=== PATIENT | male | born 1950 | race Caucasian/White ===

== ENCOUNTER 2023-12-11 05:17 | Inpatient (IN) ==
[2023-12-11 06:00] LABS: Basophils # (auto) 0.06 K/uL (0.00-0.20); Eosinophils % (auto) 3.2 %; Hematocrit (blood only) 49.4 % (42.0-52.0); Hemoglobin 16.4 g/dl (14.0-18.0); Immature Granulocytes # (auto) 0.01 K/uL (0.01-0.20); Immature Granulocytes % (auto) 0.2 %; Lymphocytes # (auto) 0.66 K/uL (1.20-3.40); Lymphocytes % (auto) 10.6 %; Mean Corpuscular Hemoglobin 28.9 pg (25.0-34.0); Mean Corpuscular Hgb Conc 33.2 g/dL (32.0-36.0); Mean Platelet Volume 8.6 fL (9.4-12.4); Monocytes # (auto) 0.87 K/uL (0.11-0.59); Neutrophils # (auto) 4.42 K/uL (1.40-6.50); Platelet Count 214 K/uL (130-400); RDW Coefficient of Variation 14.2 % (11.5-14.5); RDW Standard Deviation 45.5 fL (36.4-46.3); Red Blood Count 5.68 M/uL (4.70-6.10); White Blood Count 6.22 K/ul (4.8-10.8)
[2023-12-11 06:06] LABS: Albumin Level 4.2 gm/dl (3.4-5.0); BUN Creatinine Ratio 16.7 (10-20); Bilirubin Direct 0.1 mg/dl (0-0.2); Bilirubin,Total 0.4 mg/dl (0.2-1.0); Calcium 8.8 mg/dl (8.6-10.3); Creatinine Clr Calc Pharmacy 55.1 ml/min; Est GFR (African American) 58.8 ml/min; Est GFR (Non-African American) 50.7 ml/min; Magnesium 1.7 mg/dl (1.7-2.4); Potassium 3.8 mmol/L (3.5-5.1); Total Protein 6.9 gm/dl (6.0-8.3)
[2023-12-11 06:11] LABS: Troponin I High Sensitivity 5.9 pg/ml (0-20)
[2023-12-11 06:24] LABS: Influenza A virus by PCR Negative (Neg); Influenza B virus by PCR Negative (Neg); RSV by PCR Positive (Neg); SARS CoV2 RNA(COVID-19) Ceph NEGATIVE (Negative)
[2023-12-11] MEDS: ALBUTEROL 0.5% NEB SOLN 2.5 MG/0.5 ML VIAL NEB STA ×2 (07:01→09:24)
[2023-12-11] MEDS: methylPREDNISolone 125 MG/2 ML VIAL IV STA (07:01)
--- NOTE | 2023-12-11 07:22 | Emergency Department Note ---
Impression & Plan RSV (acute bronchiolitis due to respiratory syncytial virus), Acute on chronic hypoxic respiratory failure, Hypoxia, COPD (chronic obstructive pulmonary disease) ED Provider Note NAME: CAT ADAMES AGE: 73 SEX: M : 1950 ARRIVES VIA: Ambulance INFORMANT: Patient, ED PROVIDER(S): Deidra Dang MD CHIEF COMPLAINT: Cough, shortness of breath HPI: This is a 73-year-old male presenting for cough and increased shortness of breath. Patient states that he is a smoker. He notes that over the past 4 days he has had increasing cough, productive sputum, change in color of the sputum. He notes that he had difficulty breathing this morning and had to call 911. Patient was hypoxic upon EMS arrival requiring oxygen and nebulizers. Reportedly was 92% on room air at home. He has noted no fever that he is aware of but does feel overall sick. No nausea or vomiting. ROS: See above HPI for pertinent positives & negatives. A total of 10 systems reviewed and were otherwise negative. PAST MEDICAL HISTORY: See Below PAST SURGICAL HISTORY: See Below FAMILY HISTORY: See Below SOCIAL HISTORY: See Below HOME MEDICATIONS: See Below ALLERGIES: See Below VITALS: See Below PHYSICAL EXAMINATION: General: resting comfortably in no acute distress Head: Normocephalic and atraumatic Eyes: Normal inspection, extraocular muscles intact Ear, nose, throat: Normal external exam Neck: Normal range of motion Respiratory: Wheezing in all lung field Cardiovascular: Regular rate/rhythm, no murmur GI: soft, nontender, no guarding or rebound Extremities: nontender, moves all extremities Neuro: The patient awake and alert, appropriately conversive, no focal deficits, symmetric faces Skin: Warm, dry, and intact MEDICAL DECISION MAKING: This is 73-year-old male presenting for cough and increased shortness of breath. Patient had a screening workup done at triage including viral testing, chest x- ray and blood work. -No leukocytosis is noted, no anemia. Patient electrolytes are within normal limits. -BNP and troponin are both negative -Patient is RSV positive at this time. He is borderline hypoxic between 89 and 91% on room air despite albuterol treatments by EMS. -Will give patient methylprednisolone as well as repeat neb to assess for improvement. He is wheezing in all lung [place] -Chest Xray independently interpreted by me showing no pneumothorax, focal opacity, or pleural effusions. -Despite multiple albuterol treatments and steroids, patient continues to wheeze and is mildly hypoxic. Will admit for further workup and treatment for his RSV/COPD exacerbation -Blood work is reviewed without leukocytosis or anemia, electrolytes within normal limits. Differential diagnosis: Pneumonia, PE, ACS, sleep exacerbation, viral syndrome ER treatment provided: See below Diagnostics interpreted by me: ECG: ECG independently interpreted by me with sinus tachycardia, rate of 111, normal axis, normal CA, normal QRS, normal QTc, no ST segment elevations consistent with STEMI criteria Cardiac Monitoring: An order was placed for continuous cardiac monitoring. The monitor shows a rate of 106 with sinus rhythm. Laboratory studies: As stated above and show below. Imaging studies: See below. Past Med/Surg History Medical History Hypoxia [place] (nonalcoholic steatohepatitis) BPH (benign prostatic hyperplasia) COPD (chronic obstructive pulmonary disease) HTN (hypertension) DM2 (diabetes mellitus, type 2) Acute on chronic hypoxic respiratory failure RSV (acute bronchiolitis due to respiratory syncytial virus) Bronchitis Social History Smoking Status: Current every day smoker Tobacco Type: Cigarettes Do You Dip or Chew Tobacco: No; Tobacco Cessation Education Requested by Patient: No Hx Alcohol Use: No Hx Substance Use: No Feels Safe at Home: Yes Allergies Allergies Allergy/AdvReac Type Severity Reaction Status Date / Time diclofenac Allergy Unknown Verified 12/11/23 11:11 amoxicillin AdvReac Unknown Verified 12/11/23 11:11 clavulanic acid AdvReac Unknown Verified 12/11/23 11:11 Home Meds Home Medications Medication Instructions Recorded Confirmed empagliflozin 25 mg tablet 25 mg PO QAM 12/11/23 12/11/23 (Jardiance) fenofibrate 54 mg tablet 108 mg PO QAM 12/11/23 12/11/23 glipizide 5 mg tablet, extended 5 mg PO QAM 12/11/23 12/11/23 release 24 hr hydrochlorothiazide 12.5 mg capsule 12.5 mg PO QAM 12/11/23 12/11/23 lisinopril 40 mg tablet 40 mg PO QAM 12/11/23 12/11/23 metformin 500 mg tablet 1,000 mg PO BID 12/11/23 12/11/23 simvastatin 40 mg tablet 40 mg PO HS 12/11/23 12/11/23 Results & Data (ED) Vital Signs Vital Signs - 24 hr 12/11/23 05:24 12/11/23 05:35 12/11/23 05:36 Temperature 36.9 C Temperature Source Oral Pulse Rate 107 H 115 H Pulse Rate [Apical] 110 H Respiratory Rate 22 23 Respiratory Effort / Characteristics Spontaneous Spontaneous Respiratory Depth Blood Pressure 167/91 H Blood Pressure [Right Arm] 167/91 H Blood Pressure Mean 116 Blood Pressure Mean [Right Arm] 116 Pulse Oximetry 97 92 Oxygen Delivery Method Nebulizer Nasal Cannula Oxygen Flow Rate 4 Sepsis Recent Fever Within 48 Hours No Sepsis New/Unexplained Change in Mental Status No Sepsis Action Taken by Nursing No Action Required 12/11/23 06:24 12/11/23 07:09 12/11/23 07:10 Temperature Temperature Source Pulse Rate 101 H Pulse Rate [Apical] 99 H 100 H Respiratory Rate 23 24 24 Respiratory Effort / Characteristics Spontaneous Respiratory Depth Normal Blood Pressure Blood Pressure [Right Arm] 131/68 128/71 Blood Pressure Mean Blood Pressure Mean [Right Arm] 89 90 Pulse Oximetry 93 96 96 Oxygen Delivery Method Nasal Cannula Nebulizer Nebulizer Oxygen Flow Rate 4 Sepsis Recent Fever Within 48 Hours Sepsis New/Unexplained Change in Mental Status Sepsis Action Taken by Nursing 12/11/23 08:15 12/11/23 09:00 12/11/23 09:30 Temperature Temperature Source Pulse Rate Pulse Rate [Apical] 100 H 102 H 92 H Respiratory Rate 20 22 22 Respiratory Effort / Characteristics Non-Labored Spontaneous Non-Labored Spontaneous Respiratory Depth Normal Normal Blood Pressure Blood Pressure [Right Arm] 131/76 141/69 H 133/72 Blood Pressure Mean Blood Pressure Mean [Right Arm] 94 93 92 Pulse Oximetry 92 93 94 Oxygen Delivery Method Nasal Cannula Nasal Cannula Nasal Cannula Oxygen Flow Rate 2 2 2 Sepsis Recent Fever Within 48 Hours Sepsis New/Unexplained Change in Mental Status Sepsis Action Taken by Nursing Laboratory Data 12/11/23 05:25 12/11/23 05:25 Lab Results 12/11/23 12/11/23 12/11/23 Range/Units 05:25 05:30 05:51 WBC 6.22 (4.8-10.8) K/ul RBC 5.68 (4.70-6.10) M/uL Hgb 16.4 (14.0-18.0) g/dl Hct 49.4 (42.0-52.0) % MCV 87.0 (80.0-100.0) fL MCH 28.9 (25.0-34.0) pg MCHC 33.2 (32.0-36.0) g/dL RDW Std Deviation 45.5 (36.4-46.3) fL RDW Coeff of [place] 14.2 (11.5-14.5) % Plt Count 214 (130-400) K/uL MPV 8.6 L (9.4-12.4) fL Immature Gran % (Auto) 0.2 % Neut % (Auto) 71.0 % Lymph % (Auto) 10.6 % [place] % (Auto) 14.0 % Eos % (Auto) 3.2 % Baso % (Auto) 1.0 % Neut # (Auto) 4.42 (1.40-6.50) K/uL Lymph # (Auto) 0.66 L (1.20-3.40) K/uL [place] # (Auto) 0.87 H (0.11-0.59) K/uL Eos # (Auto) 0.20 (0.00-0.50) K/uL Baso # (Auto) 0.06 (0.00-0.20) K/uL Immature Gran # (Auto) 0.01 (0.01-0.20) K/uL Sodium 138 (136-145) mmol/L Potassium 3.8 (3.5-5.1) mmol/L Chloride 102 (98-107) mmol/L Carbon Dioxide 26 (21-32) mmol/L Anion Gap 10 (3-11) BUN 23 (6-23) mg/dl Creatinine 1.38 (0.6-1.4) mg/dl Est Cr Clr Drug Dosing 55.1 ml/min Est GFR ( Amer) 58.8 ml/min Est GFR (Non-Af Amer) 50.7 ml/min BUN/Creatinine Ratio 16.7 (10-20) Glucose 156 H (70-99(Fasting)) mg/dl Lactate 1.9 (0.4-2.0) mmol/L Calcium 8.8 (8.6-10.3) mg/dl Magnesium 1.7 (1.7-2.4) mg/dl Total Bilirubin 0.4 (0.2-1.0) mg/dl Direct Bilirubin 0.1 (0-0.2) mg/dl AST 20 (13-39) U/L ALT 16 (7-52) U/L Alkaline Phosphatase 42 (34-104) U/L Troponin I High Sens 5.9 (0-20) pg/ml B-Natriuretic Peptide 7 (0-100) pg/ml Total Protein 6.9 (6.0-8.3) gm/dl Albumin 4.2 (3.4-5.0) gm/dl Procalcitonin 0.17 (0-0.5) ng/ml Urine Color Urine Appearance (Clear) Urine pH (4.5-7.5) Ur Specific [place] (1.000-1.030) Urine Protein (Negative) Urine Glucose (UA) (Negative) Urine Ketones (Negative) Urine Blood (Negative) Urine Nitrite (Negative) Urine Bilirubin (Negative) Urine Urobilinogen (Negative) Ur Leukocyte Esterase (Negative) SARS-CoV-2 (PCR) NEGATIVE (Negative) Influenza Type A (PCR) Negative (Neg) Influenza Type B (PCR) Negative (Neg) RSV (RT-PCR) Positive A (Neg) 12/11/23 Range/Units 07:25 WBC (4.8-10.8) K/ul RBC (4.70-6.10) M/uL Hgb (14.0-18.0) g/dl Hct (42.0-52.0) % MCV (80.0-100.0) fL MCH (25.0-34.0) pg MCHC (32.0-36.0) g/dL RDW Std Deviation (36.4-46.3) fL RDW Coeff of [place] (11.5-14.5) % Plt Count (130-400) K/uL MPV (9.4-12.4) fL Immature Gran % (Auto) % Neut % (Auto) % Lymph % (Auto) % [place] % (Auto) % Eos % (Auto) % Baso % (Auto) % Neut # (Auto) (1.40-6.50) K/uL Lymph # (Auto) (1.20-3.40) K/uL [place] # (Auto) (0.11-0.59) K/uL Eos # (Auto) (0.00-0.50) K/uL Baso # (Auto) (0.00-0.20) K/uL Immature Gran # (Auto) (0.01-0.20) K/uL Sodium (136-145) mmol/L Potassium (3.5-5.1) mmol/L Chloride (98-107) mmol/L Carbon Dioxide (21-32) mmol/L Anion Gap (3-11) BUN (6-23) mg/dl Creatinine (0.6-1.4) mg/dl Est Cr Clr Drug Dosing ml/min Est GFR ( Amer) ml/min Est GFR (Non-Af Amer) ml/min BUN/Creatinine Ratio (10-20) Glucose (70-99(Fasting)) mg/dl Lactate (0.4-2.0) mmol/L Calcium (8.6-10.3) mg/dl Magnesium (1.7-2.4) mg/dl Total Bilirubin (0.2-1.0) mg/dl Direct Bilirubin (0-0.2) mg/dl AST (13-39) U/L ALT (7-52) U/L Alkaline Phosphatase (34-104) U/L Troponin I High Sens (0-20) pg/ml B-Natriuretic Peptide (0-100) pg/ml Total Protein (6.0-8.3) gm/dl Albumin (3.4-5.0) gm/dl Procalcitonin (0-0.5) ng/ml Urine Color Yellow Urine Appearance Clear (Clear) Urine pH 5.5 (4.5-7.5) Ur Specific [place] 1.031 H (1.000-1.030) Urine Protein Negative (Negative) Urine Glucose (UA) 3+ H (Negative) Urine Ketones Negative (Negative) Urine Blood Negative (Negative) Urine Nitrite Negative (Negative) Urine Bilirubin Negative (Negative) Urine Urobilinogen Negative (Negative) Ur Leukocyte Esterase Negative (Negative) SARS-CoV-2 (PCR) (Negative) Influenza Type A (PCR) (Neg) Influenza Type B (PCR) (Neg) RSV (RT-PCR) (Neg) Administered Medications Albuterol (Albut/Ipratrop 3mg/0.5mg Neb 3 Ml Vial) 3 ml NEB QIDR TAI; Protocol Stop: 01/10/24 10:59 Last Admin: 12/11/23 14:17 Dose: Not Given Documented By: Admin: 12/11/23 11:02 Dose: 3 ml Documented By: YARA Doxycycline Hyclate (Doxycycline Hyclate 100 Mg Cap) 100 mg PO BID [facility] Stop: 12/18/23 10:59 Last Admin: 12/11/23 11:23 Dose: 100 mg Documented By: FARHAT Enoxaparin Sodium (Enoxaparin Inj 40 Mg/0.4 Ml Syr) 40 mg SQ QAM [facility] Stop: 01/10/24 10:44 Last Admin: 12/11/23 11:25 Dose: Not Given Documented By: FARHAT Sodium Chloride (Nss) 1,000 mls @ 80 mls/hr IV .[id number] [facility] Stop: 12/12/23 11:29 Last Admin: 12/11/23 11:23 Dose: 80 mls/hr Documented By: FARHAT Insulin Aspart (Insulin Aspart Per Unit Charge) 0 units SC ACHS [facility] Stop: 01/10/24 11:29 Last Admin: 12/11/23 14:17 Dose: 6 units Documented By: FARHAT Co-signed By: KATE Discontinued Medications Albuterol (Albuterol 0.5% Neb Soln 2.5 Mg/0.5 Ml Vial) 2.5 mg NEB NOW STA; Protocol Stop: 12/11/23 06:54 Last Admin: 12/11/23 07:01 Dose: 2.5 mg Documented By: FARHAT Albuterol (Albuterol 0.5% Neb Soln 2.5 Mg/0.5 Ml Vial) 2.5 mg NEB NOW STA; Protocol Stop: 12/11/23 09:19 Last Admin: 12/11/23 09:24 Dose: 2.5 mg Documented By: FARHAT Insulin Glargine (Lantus Per Unit Charge) 10 units SQ 1200 [facility] Stop: 12/11/23 14:00 Last Admin: 12/11/23 14:18 Dose: 10 units Documented By: FARHAT Co-signed By: KATE Methylprednisolone (Methylprednisolone 125 Mg/2 Ml Vial) 125 mg IV NOW STA Stop: 12/11/23 06:54 Last Admin: 12/11/23 07:01 Dose: 125 mg Documented By: FARHAT Miscellaneous Information (Patient's Allergy Info Needs Entered) 1 each N/A Q30M [facility] Stop: 01/10/24 10:59 Last Admin: 12/11/23 13:21 Dose: Not Given Documented By: Admin: 12/11/23 11:13 Dose: 1 each Documented By: FARHAT Imaging Data Radiologist's Impression: Chest X-Ray 12/11/23 05:28 XR chest 1V portable HISTORY: Sepsis COMPARISON: Chest 07/02/2021. FINDINGS: Mild elevation of the right hemidiaphragm, unchanged. No pneumothorax. No pleural effusions. The heart is normal in size. There are calcifications within the aortic knob. No evidence for pulmonary edema. Faint patchy bibasilar densities are noted. IMPRESSION: Faint patchy bibasilar densities. This may represent atelectasis or a low-grade pneumonitis. ACT 112: Negative or not required by law. Electronically signed by: [place] Joseph M.D. 12/11/2023 7:42 AM Discharge Plan Visit Data Chief Complaint: Illness Stated Complaint: GENERALIZED ILLNESS, SOB X FEW DAYS ED Provider: Deidra Dang Discharge Problem: RSV (acute bronchiolitis due to respiratory syncytial virus), Acute on chronic hypoxic respiratory failure, Hypoxia, COPD (chronic obstructive pulmonary disease) Patient Disposition: Admitted As Inpatient Discharge Instructions Interventions: ED Discharge Assessment Last Done: 12/11/23 10:14
[2023-12-11 07:35] LABS: Appearance Urine Clear (Clear); Bilirubin Urine Negative (Negative); Blood Urine Negative (Negative); Color Urine Yellow; Glucose Urine UA 3+ (Negative); Ketones Urine Negative (Negative); Leukocyte Esterase Urine Negative (Negative); Nitrite Urine Negative (Negative); Protein Urine Negative (Negative); Specific Gravity Urine 1.031 (1.000-1.030); Urobilinogen Urine Negative (Negative); pH Urine 5.5 (4.5-7.5)
--- NOTE | 2023-12-11 07:44 | XRay Report ---
XR chest 1V portable HISTORY: Sepsis COMPARISON: Chest 07/02/2021. FINDINGS: Mild elevation of the right hemidiaphragm, unchanged. No pneumothorax. No pleural effusions . The heart is normal in size. There are calcifications within the aortic knob. No evidence for pulmo nary edema. Faint patchy bibasilar densities are noted. IMPRESSION: Faint patchy bibasilar densities. This may represent atelectasis or a low-grade pneumonitis. ACT 112: Negative or not required by law. Electronically signed by: [place] Joseph M.D. 12/11/2023 7:42 AM
[2023-12-11] MEDS ORDERED: ACETAMINOPHEN 325 MG TAB PO PRN (09:40)
[2023-12-11] MEDS ORDERED: MAGNESIUM HYDROXIDE SUSP 30 ML UDC PO PRN (09:40)
[2023-12-11] MEDS ORDERED: ONDANSETRON INJ 2 MG/ML 2 ML VIAL IV PRN (09:40)
[2023-12-11] MEDS ORDERED: POLYETHYLENE (MIRALAX) 17 GM PACK PO PRN (09:40)
[2023-12-11] MEDS ORDERED: ALUMINUM/MAGNESIUM SUSP 30 ML UDC PO PRN (09:40)
--- NOTE | 2023-12-11 09:48 | History & Physical Report ---
Date of Service December 11, 2023 Assessment & Plan (1) RSV (acute bronchiolitis due to respiratory syncytial virus): (2) Hypoxia: (3) DM2 (diabetes mellitus, type 2): (4) HTN (hypertension): (5) COPD (chronic obstructive pulmonary disease): (6) BPH (benign prostatic hyperplasia): Plan Mr. Matos is a 73-year-old M who presented to ED with wheezing and increased white and yellow sputum production over the past few days. Reports fever and chills, but no recorded temperature. Reports being otherwise well prior to 3 days ago. Decreased appetite and oral intake over the past 3 days. No known sick contacts and no recent air travel. In the ED, patient was placed on 4 L nasal cannula and given an albuterol treatment with mild improvement along with IV steroids. No leukocytosis, mild NATALIO; creatinine 1.38; baseline 1-1.2. Serum glucose 156. BNP negative, troponin negative, procalcitonin negative,+ RSV. Otherwise labs unremarkable. CXR: Faint patchy bibasilar densities. This may represent atelectasis or a low-grade pneumonitis. Past medical history includes NIDDM, HTN, BPH, and RAY. Daily smoker; < 1/2 PPD. Suspect patient experiencing hypoxia secondary to RSV infection. Will support with continued low-dose steroids, nebulizers, IV fluids, cover empirically with doxycycline for possible pneumonitis as evidenced on chest x-ray, flutter valve, incentive spirometry, cough expectorant for symptom management. Noted COPD and outpatient records; only on as needed albuterol. Would benefit likely from inhalers upon discharge and follow-up with pulmonary to establish care. Hypoxia secondary to RSV: Acute No leukocytosis, procalcitonin negative, BNP negative Sputum culture ordered Chest x-ray indicates Faint patchy bibasilar densities. This may represent atelectasis or a low-grade pneumonitis; will empirically cover with Doxy and await sputum culture results RSV +; place on droplet precautions Albuterol treatment x 2 in ED; continue 4 times daily plus every 2 as needed Methylprednisone 125 mg IV given in ED; continue low-dose steroids 20 mg twice daily Flutter valve and incentive spirometry ordered Mucinex for cough expectorant and Tessalon Pearls PRN NIDDM 2: Chronic Most recent A1c 06/18 7.1; will obtain while inpatient Takes metformin and glipizide; hold while inpatient and placed on SSI ACHS NATALIO: Acute Suspect related to current illness/dehydration; will place on gentle fluid rehydration and recheck BMP @ 2100 Creatinine 1.38; baseline 1-1.2 HTN: Chronic Takes lisinopril and HCTZ; continue Trend BMP to ensure creatinine trending in the right direction back to baseline Tobacco use: Chronic Smokes less than half a pack per day; no interest in cessation Declines nicotine patch Smoking cessation recommended Disposition: PCP: Inocencia Kelly PA-C CODE STATUS: Full code VTE prophylaxis: Lovenox SQ I spent a total of 87 minutes coordinating, documenting, and providing care for this patient excluding time spent in the performance of separately billed services. All of the aforementioned completed while collaborating with the assigned attending physician for a full treatment plan. Please see their addendum for further details. History of Present Illness Chief Complaint: SOB, RSV + Primary Care Provider: Inocencia Kelly DO Mr. Matos is a 73-year-old male who presented to the ED with wheezing and increased white and yellow sputum production over the past few days. He has had pneumonia and bronchitis a few years ago. Reports fever and chills, but no recorded temperature. Reports being otherwise well prior to 3 days ago. Decreased appetite and oral intake over the past 3 days. No known sick contacts and no recent air travel. In the ED, patient was placed on 4 L nasal cannula and given an albuterol federico tment with mild improvement along with IV steroids. Past medical history includes NIDDM, HTN, BPH, and RAY. Has albuterol as needed. No leukocytosis, mild NATALIO; creatinine 1.38; baseline 1-1.2. Serum glucose 156. BNP negative, troponin negative, procalcitonin negative,+ RSV. Otherwise labs unremarkable. Chest x-ray indicates faint patchy bibasilar densities. This may represent atelectasis or a low-grade pneumonitis. Pt denies CARRERO, dizziness, chest pain, palpitations, abdominal pain or tenderness, nausea, vomiting, urine or bowel changes, recent falls or trauma. Patient reports smoking daily less than half pack per day; no alcohol or recreational drug use including medical marijuana. Suspect patient experiencing hypoxia secondary to RSV infection. Will support with continued low-dose steroids, nebulizers 4 times daily plus as needed, IV fluids, cover empirically with doxycycline for possible pneumonitis as evidenced on chest x-ray, flutter valve, incentive spirometry, cough expectorant for symptom management. Patient will be admitted for further evaluation and management. Please see A/P for further details. Allergies Allergy/AdvReac Type Severity Reaction Status Date / Time diclofenac Allergy Unknown Verified 12/11/23 11:11 amoxicillin AdvReac Unknown Verified 12/11/23 11:11 clavulanic acid AdvReac Unknown Verified 12/11/23 11:11 Home Medications Medication Instructions Recorded Confirmed Type empagliflozin 25 mg tablet 25 mg PO QAM 12/11/23 12/11/23 History (Jardiance) fenofibrate 54 mg tablet 108 mg PO QAM 12/11/23 12/11/23 History glipizide 5 mg tablet, extended 5 mg PO QAM 12/11/23 12/11/23 History release 24 hr hydrochlorothiazide 12.5 mg capsule 12.5 mg PO QAM 12/11/23 12/11/23 History lisinopril 40 mg tablet 40 mg PO QAM 12/11/23 12/11/23 History metformin 500 mg tablet 1,000 mg PO BID 12/11/23 12/11/23 History simvastatin 40 mg tablet 40 mg PO HS 12/11/23 12/11/23 History Past Med/Surg History Medical History Hypoxia RAY (nonalcoholic steatohepatitis) BPH (benign prostatic hyperplasia) COPD (chronic obstructive pulmonary disease) HTN (hypertension) DM2 (diabetes mellitus, type 2) Acute on chronic hypoxic respiratory failure RSV (acute bronchiolitis due to respiratory syncytial virus) Bronchitis Social History Smoking Status: Current every day smoker Tobacco Type: Cigarettes Do You Dip or Chew Tobacco: No; Tobacco Cessation Education Requested by Patient: No Hx Alcohol Use: No Hx Substance Use: No Feels Safe at Home: Yes Review of Systems Review of Systems: Neuro: (-) Falls, trauma, slurred speech HEENT: (-) CARRERO, dizziness, dysphagia, visual or auditory changes CV: (-) CP, palpitations, swelling Resp: (+) SOB (+) cough GI: (-) appetite changes, N/V/D, bowel changes : (-) urinary changes Skin: (-) rashes Psych: (-) anxiety, depression Physical Exam Physical Exam: Neuro: AAOx4, PERRLA, no aphagia, memory changes, CNII-XII grossly intact HEENT: head normocephalic, moist mucus membranes CV: S1/S2, (-) M/G/R, (-) edema, cap refill < 3 seconds Resp: Lungs 2LNC; expiratory wheezing. GI: Abdomen S/NT/ND, Ax4 bowel sounds, (-) CVA tenderness Musculoskeletal: 5/5 B/L UE strength, 5/5 B/L LE strength. No gait disturbance Skin: (-) rashes , (-) erythema. Psych: euthymic mood Results & Data Results & Data Vital Signs (Past 12 Hours) Vital Signs Temp Pulse Pulse Resp BP BP Pulse Ox 12/11/23 09:30 92 H 22 133/72 94 12/11/23 09:00 102 H 22 141/69 H 93 12/11/23 08:15 100 H 20 131/76 92 12/11/23 07:10 101 H 24 96 12/11/23 07:09 100 H 24 128/71 96 12/11/23 06:24 99 H 23 131/68 93 12/11/23 05:36 115 H 12/11/23 05:35 110 H 23 167/91 H 92 12/11/23 05:24 36.9 C 107 H 22 167/91 H 97 O2 Del Method O2 Flow Rate 12/11/23 09:30 Nasal Cannula 2 12/11/23 09:00 Nasal Cannula 2 12/11/23 08:15 Nasal Cannula 2 12/11/23 07:10 Nebulizer 12/11/23 07:09 Nebulizer 12/11/23 06:24 Nasal Cannula 4 12/11/23 05:36 12/11/23 05:35 Nasal Cannula 4 12/11/23 05:24 Nebulizer Laboratory Results Short CBC 12/11/23 Range/Units 05:25 WBC 6.22 (4.8-10.8) K/ul Hgb 16.4 (14.0-18.0) g/dl Hct 49.4 (42.0-52.0) % Plt Count 214 (130-400) K/uL BMP 12/11/23 05:25 Sodium 138 Potassium 3.8 Chloride 102 Carbon Dioxide 26 BUN 23 Creatinine 1.38 Glucose 156 H Calcium 8.8 Liver Function 12/11/23 Range/Units 05:25 Total Bilirubin 0.4 (0.2-1.0) mg/dl Direct Bilirubin 0.1 (0-0.2) mg/dl AST 20 (13-39) U/L ALT 16 (7-52) U/L Alkaline Phosphatase 42 (34-104) U/L Albumin 4.2 (3.4-5.0) gm/dl Urine 12/11/23 Range/Units 07:25 Urine Color Yellow Urine Appearance Clear (Clear) Urine pH 5.5 (4.5-7.5) Ur Specific [place] 1.031 H (1.000-1.030) Urine Protein Negative (Negative) Urine Glucose (UA) 3+ H (Negative) Diagnostic Findings Chest X-Ray 12/11/23 05:28 XR chest 1V portable HISTORY: Sepsis COMPARISON: Chest 07/02/2021. FINDINGS: Mild elevation of the right hemidiaphragm, unchanged. No pneumothorax. No pleural effusions. The heart is normal in size. There are calcifications within the aortic knob. No evidence for pulmonary edema. Faint patchy bibasilar densities are noted. IMPRESSION: Faint patchy bibasilar densities. This may represent atelectasis or a low-grade pneumonitis. ACT 112: Negative or not required by law. Electronically signed by: [place] Joseph M.D. 12/11/2023 7:42 AM Code Status & VTE Plan Code Status Full code in the event of cardiac respiratory arrest VTE Prophylaxis Plan VTE Prophylaxis will be ordered: Yes Supervising Physician Co-Signing Physician Notes Patient is a 73-year-old male with with history of Ray, COPD, hypertension and diabetes mellitus presents with history of worsening cough associated with wheezing, yellowish expectoration, and shortness of breath, poor appetite since 3 to 4 days duration. Intermittently smokes tobacco. He uses DuoNebs only as needed and currently not on any maintenance inhalers. Please review HPI for complete details of presentation. I personally reviewed blood work and imaging studies. Blood work fairly within normal limits except glucose elevated at 198. Normal BNP, procalcitonin, lactic acid. Serology positive for RSV. Chest x- ray showed faint patchy bibasilar densities suggestive of possible pneumonitis. EKG showed sinus tachycardia, nonspecific ST-T wave changes, QTc 443. On exam patient is moderately built and nourished, no apparent distress, EOMI, normocephalic atraumatic, decreased breath sounds, minimal basilar crackles, expiratory wheezes, S1-S2, tachycardia, no murmur, no pedal edema, abdomen soft, nontender, normal bowel sounds, alert, awake, oriented, grossly no focal deficits. Patient is admitted for management of acute bronchitis/pneumonitis secondary to RSV, COPD exacerbation and hypoxia. Agree with nebs, Solu-Medrol, doxycycline, supplemental oxygen as needed and pulmonary hygiene. Started on insulin for diabetes management. Titrate oxygen to keep saturations 88 to 92%. I personally interviewed and examined at bedside. Patient's care is coordinated with Ivett BURGESS. I have reviewed the advanced practitioner's documentation, and I agree with, and take responsibility for that plan of care. Please refer to the documentation above for details of patient's presentation and for discussion of other issues. I spent a total of 25minutes coordinating, documenting, and providing care for this patient excluding time spent in the performance of separately billed services.
--- OUTSIDE RECORDS SUMMARY | 2023-12-11 09:48 | External Medical Summary | Summary of Care ---
Author Name Unknown Organization [facility] Address [address] [place] [address] Phone [phone] Care Team Providers Care Entry Level Civil Engineer Name Role Phone HintonGreg alba Primary Care Provider [phone] Reason for Visit * Reason Comments eRx-Medication Refill Encounter Details Date Type Department Care Team (Late st Contact Info) Description 12/09/2023 Refill Family Medicine [address] [address] Carly Marshall PA-C [address] [place] [address] HTN, goal below 130/80 Allergies Active Allergy Reactions Criticality Noted Date Comments Amoxicillin-Pot Clavulanate Rash 10/03/20 11 Diclofenac Sodium 11/01/2009 hives documented as of this encounter (statuses as of 12/10/2023) Medications Medication Sig Dispensed Refills Start Date End Date Status [facility] TEST STRPIndications: DM type 2, goal A1c below 7 Breeze test strips;tests Diagnosis 250.02 100 Strip 5 10/10/2010 Active Ipratropium-Albu terol 0.5-2.5 (3) MG/3ML Inhalation Solution (Duoneb)Indicati ons:Cough Inhale 3 mL via nebulizer every 6 hours as needed for Cough or Shortness of Breath. 360 mL 5 07/11/2021 Active hydroCHLOROthiaz yarelis 12.5 MG Oral Capsule (Hydrodiuril)Ind ications:HTN, goal below 130/80 Take 1 Capsule by mouth in the morning. 90 Capsule 1 06/06/2023 Active metFORMIN HCl 500 MG Oral Tablet (Glucophage)Margaux cations:Type 2 diabetes mellitus with hemoglobin A1c goal of less than 7.0% (HCC) Take 2 Tablets by mouth in the morning and 2 Tablets before bedtime. 360 Tablet 3 08/08/2023 Active Fenofibrate 54 MG Oral Tablet (Lofibra)Indicat ions:Dyslipidemi a, goal LDL below 100 Take 2 Tablets by mouth in the morning. 180 Tablet 3 11/10/2023 Active Simvastatin 40 MG Oral Tablet (Zocor)Indicatio ns:Dyslipidemia, goal LDL below 100 Take 1 Tablet by mouth at bedtime. 180 Tablet 3 11/10/2023 Active glipiZIDE ER 5 MG Oral Tablet Extended Release 24 Hour (Glucotrol XL) Take 1 Tablet by mouth in the morning. 30 minutes before a meal.. 90 Tablet 1 12/10/2023 Active Lisinopril 40 MG Oral TabletIndication s:HTN, goal below 130/80 TAKE ONE TABLET BY MOUTH IN THE MORNING 90 Tablet 1 12/10/2023 Active Jardiance 25 MG Oral Tablet (Empagliflozin) TAKE ONE TABLET BY MOUTH IN THE MORNING 90 Tablet 1 12/10/2023 Active Lisinopril 40 MG Oral TabletIndication s:HTN, goal below 130/80 Take 1 Tablet by mouth in the morning. 90 Tablet 3 12/03/2022 4 Discontinued Empagliflozin 25 MG Oral Tablet (Jardiance) Take 1 Tablet by mouth in the morning. 90 Tablet 3 12/03/2022 4 Discontinued glipiZIDE ER 5 MG Oral Tablet Extended Release 24 Hour (glipiZIDE XL) Take 1 Tablet by mouth in the morning. 30 minutes before a meal.. 90 Tablet 3 12/11/2022 4 Discontinued documented as of this encounter (statuses as of 12/10/2023) Active Problems Problem Noted Date Diagnosed Date Chronic obstructive pulmonary disease 05/31/2022 Type 2 diabetes mellitus wit h diabetic nephropathy, without long-term current use of insulin 05/31/2022 Overweight (BMI 25.0-29.9) 05/15/2021 BPH with obstruction/lower urinary tract symptom s 02/09/2021 Advance directive on file 01/12/2019 Acquired pes cavus 05/27/2016 [place] (nonalcoholic steatohepatitis) 10/23/2015 Type 2 diabetes mellitus wit h hemoglobin A1c goal of less than 7.0% 12/08/2014 Overview: ICD-10 update of inactive term HTN, goal below 130/80 05/31/2013 Hyperlipidemia with target LDL less than 70 05/2009 Overview: Per Lipid Taxonomy. documented as of this encounter (statuses as of 12/10/2023) Resolved Problems Problem Noted Date Diagnosed Date Resolved Date Obstructive lung disease 08/11/2020 Obesity, Class I, BMI 30.0-3 4.9 (see actual BMI) 07/07/2018 05/15/2021 Asthma in remission 12/10/2017 07/19/20 Primary osteoarthritis of both feet 05/27/2016 11/27/2016 Generalized osteoarthritis 02/12/2016 0 01/12/2019 DM type 2 causing CKD stage 3 02/12/2016 01/12/2019 Kidney disease, chronic, sta ge III (GFR 30-59 ml/min) 10/19/2015 01/12/2019 HTN, goal below 140/90 12/15/201408/11 Fitch's cyst of knee 12/02/2013 018 Asthma, mild persistent 02/25/201311/27 Impaired fasting glucose 01/23/201311/2012 HTN, goal below 140/80 06/15/201205/31 Overview: Per HTN Protocol #27. Dry mouth 02/11/2012 12/23/2012 Kidney disease, chronic, sta ge III (GFR 30-59 ml/min) 01/23/2012 06/02/2015 Urticaria 01/10/2011 12/10/2017 Severe obesity with body mas s index (BMI) of 35.0 to 39.9 with serious comorbidity 01/22/2010 Overview: Per Obesity Taxonomy ICD-10 update of inactive diagnosis HTN, goal below 130/80 10/04/200906/18 HTN, goal below 140/90 09/01/200910/04 Overview: Modified per HTN Taxonomy. Type 2 diabetes mellitus wit h hemoglobin A1c goal of less than 7.0% 08/10/2009 06/17/2014 Overview: Modified per Diabetes protocol #14. ICD-10 update of inactive term Slow transit constipation 11/20/2007 Anxiety state 05/05/2007 12/10/2017 GENERAL OSTEOARTHROSIS 12/03/200612/10 Other form of scoliosis, uns pecified spinal region 03/26/2006 02/17/2008 Overview: ICD-10 update of inactive term Degeneration of lumbosacral intervertebral disc 03/26/2006 01/12/2019 ABN LIVER FUNCTION STUDY 03/04/200609/2010 ADVANCE DIRECTIVE INFORMATION 12/09/2005 12/10/2017 Overview: No, Advance Directive brochure given to patient at prior appointment. GENERAL OSTEOARTHROSIS 03/15/200506/07 Persistent insomnia 08/30/2004 10/10/20 10 Strain of rotator cuff capsule 05/25/2004 01/19/2008 LOC PRIM OSTEOART-SHLDER 12/14/2003 Raynaud's syndrome 12/14/2003 8 ADHESIVE CAPSULIT SHLDER BENIGN HYPERTENSION 09/01/20 09 Overview: Modified per HTN Taxonomy. OSTEOARTHROS NOS-HAND 2007 OSTEOARTHROS NOS-L-LEG 02/24 Mixed dyslipidemia 9 Overview: Per Lipid Taxonomy. OBESITY, UNSPECIFIED 010 Overview: Per Obesity Taxonomy DM type 2, not at goal 08/10 Overview: Modified per Diabetes protocol #14. Benign neoplasm of colon Metabolic syndrome 8 Other chronic nonalcoholic liver disease 12/10/2017 Overview: FATTY INFILTRATION LIVER documented as of this encounter (statuses as of 12/10/2023) Immunizations Name Administration Dates Next Due COVID-19 mRNA, LNP-s, No Pre serve, 2-Dose Series (Moderna) 07/17/2021,06/18/2021 PPD 01/12/2019 Pneumococcal Conjugate Vacc, 13 Valent (Prevnar) 01/12/2019 Pneumococcal Polysaccharide PPV23 (Pneumovax) 08/11/2020,09/18/2007,08/13/2006 Seasonal Influenza, Split, I IV3, With Preserve, Inj 10/10/2010,11/15/2009(Deferred: Patient Refused),07/29/2008,09/18/2007, 006 TDAP (age 10 and older)(Boostrix) 01/12/2019 TDAP (age 11 and older)(Adacel) 04/28/2008 Zoster Vaccine Recombinant (Shingrix) 09/20/2019 ,07/19/2019 documented as of this encounter Social History Tobacco Use Types Packs/Day Years Used Date Smoking Tobacco: Every Day Cigarettes 0.3 8 Smokeless Tobacco: Former Comments:1 pack a week x 8 y ears. Didn't smoke from [age]. Alcohol Use Standard Drinks/Week Comments No 0 (1 standard drink = 0.6 oz pure alcohol) Last drink 06/2017. Mostly drinks holidays PHQ-2 Answer Date Recorded PHQ-2 Score 0 08/11/2020 Hunger Vital Sign Answer Date Recorded Worried About Running Out of Food in the Last Ye ar Never true 08/11/2020 Ran Out of Food in the Last Year Never true 08/11/2020 Sex and Gender Information Value Date Recorded Sex Assigned at Not on file Gender Identity Not on file Sexual Orientation Not on file Job Start Date Occupation Industry Not on file Not on file Not on file documented as of this encounter Miscellaneous Notes * Telephone Encounter - German Norman RPh - 12/10/2023 10:49 AM ESTSigned Prescriptions: Disp Refills glipiZIDE ER 5 MG Oral Tablet Extended Rel*90 Tab*1 Sig: Take 1 Tablet by mouth in the morning. 30 minutes before a meal..Authorizing Provider: GREG HINTON User: GERMAN NORMAN Lisinopril 40 MG Oral Tablet 90 Tab*1 Sig: TAKE ONE TABLET BY MOUTH IN THE MORNINGAuthorizing Provider: GREG HINTON User: GERMAN NORMAN 25 MG Oral Tablet (Empagliflozin)90 Tab*1 Sig: TAKE ONE TABLET BY MOUTH IN THE MORNINGAuthorizing Provider: GREG HINTON User: GERMAN NORMAN documented in this encounter Plan of Treatment Upcoming Encounters Date Type Department Care Team (Late st Contact Info) Description 12/16/2023 9:10 AM EST Office Visit Family Medicine [address] [place] [address] [address] [place] [phone] Scheduled Procedures Name Priority Associated Diagnoses Date/Ti me COLONOSCOPY FLEXIBLE PROXIMAL DIAGNOSTIC Recall History of colon polyps Health Maintenance Due Date Last Done Comments Alpha-1 Antitrypsin 1969 Hepatitis B (1 of 3 - Risk 3-dose series) 2011 DISCUSS TOBACCO CESSATION (REFER TO SMARTSET #3291) 12/10/2018 12/10/2017 (Discussed) Depression Screening 08/11/2021 08/11/2020 COVID-19 Vaccine ( season) 2023 07/17/2021, 06/18/2021 Influenza Vaccine (FLU shot) (#1) 2023 10/10/2010, 07/29/2008, 09/18/2007, Additional history exists COLONOSCOPY-EVERY 3 YRS AGES 18-100 09/05/2023 09/05/2020, 09/05/2020 GFR 12/03/2023 12/03/2022, 08/0 02/2022, 10/01/2021, Additional history exists HbA1c 12/07/2023 06/06/2023, 02/0 04/2023, 05/31/2022, Additional history exists Diabetic Eye Exam 01/31/2024 01/30/2023, , 02/05/2022, Additional history exists Albumin/Creatinine Ratio 06/06/2024 023, 05/31/2022, 10/01/2021, Additional history exists B-12 06/06/2024 06/06/2023, 08/0 02/2022, 05/15/2021, Additional history exists Diabetic Foot Exam 06/06/2024 06/06/2023, 0 05/31/2022, 05/15/2021, Additional history exists O2 ASSESSMENT COMPLETED IN PAST YEAR FOR COPD 10/08/2024 10/08/2023 Lipid Panel 06/06/2028 06/06/2023, 08/0 02/2022, 05/15/2021, Additional history exists DTaP,Tdap,and Td Vaccines (3 - Td or Tdap) 01/12/2029 01/12/2019, 04/28/2008 Zoster Vaccines Completed 09/20/2019, 07/19/2019 Pneumococcal Vaccine: 65+ Years Completed 08/11/2020, 01/12/2019, 09/18/2007, Additional history exists AAA Screening Completed 08/28/2021, 12/16/2017 GARDASIL-HPV IMMUNIZATION SERIES Aged Out No longer eligible based on patient's age to complete this topic MENINGOCOCCAL (MENACTRA/MENVEO) Aged Out No longer eligible based on patient's age to complete this topic documented as of this encounter Medical Devices Not on filedocumented as of this encounter Visit Diagnoses Diagnosis HTN, goal below 130/80 Unspecified essential hypertension documented in this encounter Advance Directives Documents on File Type Date Recorded Patient Safety And Occupational Health Manager Expl anation Advance Directives and Living Will 01/02/2019 ADVANCE DIRECTIVE FI VE WISHES Power of Labels Molder 01/02/2019 POWER OF A TTORNEY FIVE WISHES Care Teams Entry Level Civil Engineer Relationship Specialty Start Date End Date Greg Hinton DO [address] [place] [address] [place] [id number] PCP - General Internal Medicine 12/10/17 documented as of this encounter
--- OUTSIDE RECORDS SUMMARY | 2023-12-11 09:49 | External Medical Summary | Summary of Care ---
Author Name Unknown Organization [facility] Address [address] [facility] [place] [address] Phone [phone] Care Team Providers Care Emt I/85 Name Role Phone Inocencia Kelly DO Primary Care Provider [phone] Reason for Visit * Reason Onset Date Comments Health Maintenance 09/05/2023 Encounter Details Date Type Department Care Team (Late st Contact Info) Description 09/05/2023 Telephone Family Medicine [address] [phone] Inocencia Kelly DO [address] [place] [address] [place] [address] Health Maintenance Allergies Active Allergy Reactions Criticality Noted Date Comments Amoxicillin-Pot Clavulanate Rash 10/03/20 11 Diclofenac Sodium 11/01/2009 hives documented as of this encounter (statuses as of 09/05/2023) Medications Medication Sig Dispensed Refills Start Date End Date Status ASCENSIA ELITE TEST STRPIndications:DM type 2, goal A1c below 7 Breeze test strips;tests Diagnosis 250.02 100 Strip 5 10/10/2010 Active Ipratropium-Albuter ol 0.5-2.5 (3) MG/3ML Inhalation Solution (Duoneb)Indications :Cough Inhale 3 mL via nebulizer every 6 hours as needed for Cough or Shortness of Breath. 360 mL 5 07/11/2021 Active Fenofibrate 54 MG Oral Tablet (Lofibra)Indication s:Dyslipidemia, goal LDL below 100 Take 2 Tablets by mouth in the morning. 180 Tablet 3 11/15/2022 Active Simvastatin 40 MG Oral Tablet (Zocor)Indications: Dyslipidemia, goal LDL below 100 Take 1 Tablet by mouth at bedtime. 90 Tablet 3 11/18/2022 Active Lisinopril 40 MG Oral TabletIndications:H TN, goal below 130/80 Take 1 Tablet by mouth in the morning. 90 Tablet 3 12/03/2022 Active Empagliflozin 25 MG Oral Tablet (Jardiance) Take 1 Tablet by mouth in the morning. 90 Tablet 3 12/03/2022 Active glipiZIDE ER 5 MG Oral Tablet Extended Release 24 Hour (glipiZIDE XL) Take 1 Tablet by mouth in the morning. 30 minutes before a meal.. 90 Tablet 3 12/11/2022 Active hydroCHLOROthiazide 12.5 MG Oral Capsule (Hydrodiuril)Indica tions:HTN, goal below 130/80 Take 1 Capsule by mouth in the morning. 90 Capsule 1 06/06/2023 Active metFORMIN HCl 500 MG Oral Tablet (Glucophage)Indicat ions:Type 2 diabetes mellitus with hemoglobin A1c goal of less than 7.0% (HCC) Take 2 Tablets by mouth in the morning and 2 Tablets before bedtime. 360 Tablet 3 08/08/2023 Active documented as of this encounter (statuses as of 09/05/2023) Active Problems Problem Noted Date Diagnosed Date [...] as of this encounter (statuses as of 09/05/2023) Resolved Problems Problem Noted Date Diagnosed Date [...] as of this encounter (statuses as of 09/05/2023) Immunizations Name Administration Dates Next Due COVID-19 [...] encounter Miscellaneous Notes * Telephone Encounter - KashmirJhonathanROD kinsey - 09/05/2023 1:59 PM EST Care Gaps Comprehensive Care Outreach Last Office/Telemedicine Visit: 06/06/2023 (in office), Visit date not found (telemedicine) Next Office Visit: 12/16/2023 Hemoglobin AIC Results: Lab Results Component Value Date/Time HEMOGLOBIN A1C - [facility] 7.1 (H) 06/06/2023 09:29 AM HEMOGLOBIN A1C - [facility] 7.8 (H) 12/03/2022 08:44 AM HEMOGLOBIN A1C - [facility] 7.0 (H) 05/31/2022 09:26 AM HEMOGLOBIN A1C - [facility] 7.7 (H) 11/14/2020 08:23 AM HEMOGLOBIN A1C - [facility] 9.0 (H) 08/11/2020 03:09 PM HEMOGLOBIN A1C - [facility] 6.9 (H) 07/19/2019 09:25 AM Reviewed Health Maintenance below: Health Maintenance Topic Date Due Alpha-1 Antitrypsin Never done Hepatitis B (1 of 3 - Risk 3-dose series) Never done DISCUSS TOBACCO CESSATION (REFER TO SMARTSET #3291) 12/10/2018 Depression Screening 08/11/2021 Influenza Vaccine (FLU shot) (1) 06/27/2023 COVID-19 Vaccine (3 - season) 2023 COLONOSCOPY-EVERY 3 YRS AGES 18-100 09/05/2023 GFR 12/03/2023 HbA1c 12/07/2023 Labs colon Care Gap Outreach Action Taken: Left message documented in this encounter Plan of Treatment Upcoming Encounters Date Type Department Care Team (Late st Contact Info) Description 12/16/2023 9:10 AM EST Office Visit Family Medicine [address] [place] [address] [address] [place] [address] Scheduled Procedures Name Priority Associated Diagnoses Date/Ti [...] 18-100 09/05/2023 09/05/2020, 09/05/2020 GFR 12/03/2023 12/03/2022, 080 02/2022, 10/01/2021, Additional history exists HbA1c 12/07/2023 06/06/2023, 020 04/2023, 05/31/2022, Additional history exists Diabetic Eye Exam 01/31/2024 01/30/2023, , 02/05/2022, Additional history exists Albumin/Creatinine Ratio 06/06/2024 023, 05/31/2022, 10/01/2021, Additional history exists B-12 06/06/2024 06/06/2023, 08/0 02/2022, 05/15/2021, Additional history exists Diabetic Foot Exam 06/06/2024 06/06/2023, 0 05/31/2022, 05/15/2021, Additional history exists O2 ASSESSMENT COMPLETED IN PAST YEAR FOR COPD 06/06/2024 06/06/2023 Lipid Panel 06/06/2028 06/06/2023, 080 02/2022, 05/15/2021, Additional history exists DTaP,Tdap,and Td [...] Not on filedocumented as of this encounter Advance Directives Documents on File Type Date Recorded Patient Laborer Sawmill Expl anation Advance Directives and Living Will 01/02/2019 ADVANCE DIRECTIVE FI VE WISHES Power of Real Estate Financial Analyst 01/02/2019 POWER OF A TTORNEY FIVE WISHES Care Teams Emt I/85 Relationship Specialty Start Date End Date Inocencia Kelly DO [address] [place] [address] [place] [phone] PCP - General Internal Medicine 12/10/17 documented as of this encounter
--- OUTSIDE RECORDS SUMMARY | 2023-12-11 09:49 | External Medical Summary | Summary of Care ---
Author Name Unknown Organization [facility] Address [address] [facility] [place] [place] [address] Phone [phone] Care Team Providers Care Engineer Internship Name Role Phone Greg Hinton DO Primary Care Provider [phone] Reason for Visit * Reason Onset Date Comments Medication Refill 11/07/2023 Encounter Details Date Type Department Care Team (Late st Contact Info) Description 11/07/2023 Refill Family Medicine [address] [phone] Greg Hinton DO [address] [place] [address] [place] [address] Dyslipidemia, goal LDL below 100 Allergies Active Allergy Reactions Criticality Noted Date Comments Amoxicillin-Pot Clavulanate Rash 10/03/20 11 Diclofenac Sodium 11/01/2009 hives documented as of this encounter (statuses as of 11/10/2023) Medications Medication Sig Dispensed Refills Start Date End Date Status [facility] EL[facility] TEST STRPIndications: DM type 2, goal A1c below 7 Breeze test strips;tests Diagnosis 250.02 100 Strip 5 10/10/2010 Active Ipratropium-Albu terol 0.5-2.5 (3) MG/3ML Inhalation Solution (Duoneb)Indicati ons:Cough Inhale 3 mL via nebulizer every 6 hours as needed for Cough or Shortness of Breath. 360 mL 5 07/11/2021 Active Lisinopril 40 MG Oral TabletIndication s:HTN, [...] a meal.. 90 Tablet 3 12/11/2022 Active hydroCHLOROthiaz yarelis 12.5 MG Oral Capsule [...] at bedtime. 180 Tablet 3 11/10/2023 Active Fenofibrate 54 MG Oral Tablet (Lofibra)Indicat ions:Dyslipidemi a, goal LDL below 100 Take 2 Tablets by mouth in the morning. 180 Tablet 3 11/15/2022 11/07/2023 Discontinued (Refill) Simvastatin 40 MG Oral Tablet (Zocor)Indicatio ns:Dyslipidemia, goal LDL below 100 Take 1 Tablet by mouth at bedtime. 90 Tablet 3 11/18/2022 11/07/2023 Discontinued (Refill) documented as of this encounter (statuses as of 11/10/2023) Active Problems Problem Noted Date Diagnosed Date [...] as of this encounter (statuses as of 11/10/2023) Resolved Problems Problem Noted Date Diagnosed Date [...] as of this encounter (statuses as of 11/10/2023) Immunizations Name Administration Dates Next Due COVID-19 [...] encounter Miscellaneous Notes * Telephone Encounter - Greg Hinton DO - 11/10/2023 10:36 AM ESTSigned Prescriptions: Disp Refills Fenofibrate 54 MG Oral Tablet (Lofibra) 180 Ta*3 Sig: Take 2 Tablets by mouth in the morning. Authorizing Provider: GREG HINTON Simvastatin 40 MG Oral Tablet (Zocor) 180 Ta*3 Sig: Take 1 Tablet by mouth at bedtime. Authorizing Provider: GREG HINTON * Telephone Encounter - Mandy Dobbins RN - 11/10/2023 9:02 AM ESTPending Prescriptions: Disp Refills Fenofibrate 54 MG Oral Tablet (Lofibra) 180 Ta*3 Sig: Take 2 Tablets by mouth in the morning. Simvastatin 40 MG Oral Tablet (Zocor) 180 Ta*3 Sig: Take 1 Tablet by mouth at bedtime. * Telephone Encounter - Maria Guadalupe Hammer OSA - 11/07/2023 1:09 PM EST Did you pend patient's preferred pharmacy and medication before forwarding?no Pharmacy: [facility], [address] [place] Pending Prescriptions: Disp Refills Fenofibrate 54 MG Oral Tablet (Lofibra) 180 Ta*3 Sig: Take 2 Tablets by mouth in the morning. Simvastatin 40 MG Oral Tablet (Zocor) 180 Ta*3 Sig: Take 1 Tablet by mouth at bedtime. Last Visit: 10/08/2023 (in office), Visit date not found (telemedicine) Next Visit: 12/16/2023 If no future appointments scheduled, and last appointment is greater than a year ago, please schedule patient for a follow-up appointment Last date the medication was ordered: 10.07.2023 Is this request for a controlled substance?No Urine Drug Screen:No results found for this or any previous visit. Patient Phone Numbers Labs: Lab Results Component Value Date/Time CREAT 1.0 12/03/2022 08:44 AM CREAT 1.3 (H) 11/14/2020 08:23 AM POTASSIUM 4.8 12/03/2022 08:44 AM POTASSIUM 4.2 11/14/2020 08:23 AM TSH 3.67 01/22/2012 11:35 AM LDLCALC 69 06/06/2023 09:29 AM LDLCALC 60 08/11/2020 03:09 PM LDLDIRECT NOT APPLICABLE 08/11/2020 03:09 PM LDLDIRECT 147 (H) 03/30/2007 12:11 PM ALT 13 05/31/2022 09:26 AM ALT 18 08/11/2020 03:09 PM HGBA1C 7.1 (H) 06/06/2023 09:29 AM HGBA1C 7.7 (H) 11/14/2020 08:23 AM documented in this encounter Plan of Treatment Upcoming Encounters Date Type Department Care Team (Late st Contact Info) Description 12/16/2023 9:10 AM EST Office Visit Family Medicine [address] [phone] [address] [place] [address] Scheduled Procedures Name [...] as of this encounter Visit Diagnoses Diagnosis Dyslipidemia, goal LDL below 100 Other and unspecified hyperlipidemia documented in this encounter Advance Directives Documents on File Type Date Recorded Patient Tattooer Expl anation Advance Directives and Living Will 01/02/2019 ADVANCE DIRECTIVE FI VE WISHES Power of Fisheries Management Biologist 01/02/2019 POWER OF A TTORNEY FIVE WISHES Care Teams Engineer Internship Relationship Specialty Start Date End Date Greg Hinton DO [address] [place] [address] [place] [id number] PCP - General Internal Medicine 12/10/17 documented as of this encounter
--- OUTSIDE RECORDS SUMMARY | 2023-12-11 09:49 | External Medical Summary | Summary of Care ---
Author Name Unknown Organization [facility] Address [address] [place] [address] Phone [phone] Care Team Providers Care Butt Maker Name Role Phone Inocencia Kelly DO Primary Care Provider [phone] Reason for Visit * Reason Comments Acute Pt c/o pain in lower ride side of back, into leg; pain in shoulders; doctors excuse for 10/13, 10/14, 10/15, 10/16, already off this week. Encounter Details Date Type Department Care Team (Late st Contact Info) Description 10/08/2023 12:30 PM EST Office Visit Family Medicine [address] [phone] Inocencia Kelly [address] [place] [address] Acute pain of right shoulder*; HTN, goal below 130/80 Allergies Active Allergy Reactions Criticality Noted Date Comments Amoxicillin-Pot Clavulanate Rash 10/03/20 11 Diclofenac Sodium 11/01/2009 hives documented as of this encounter (statuses as of 10/08/2023) Medications Medication Sig Dispensed Refills Start Date [...] as of this encounter (statuses as of 10/08/2023) Active Problems Problem Noted Date Diagnosed Date [...] as of this encounter (statuses as of 10/08/2023) Resolved Problems Problem Noted Date Diagnosed Date [...] as of this encounter (statuses as of 10/08/2023) Immunizations Name Administration Dates Next Due COVID-19 [...] on file documented as of this encounter Last Filed Vital Signs Vital Sign Reading Time Taken Comments Blood Pressure 168/90 10/08/2023 12:18 PM EST Pulse 106 10/08/2023 12:18 PM EST Temperature 36.6 C (97.9 F) 10/08/2023 12:[address] Respiratory Rate - - Oxygen Saturation 95% 10/08/2023 12:18 PM EST Inhaled Oxygen Concentration - - Weight 94.4 kg (208 lb 3.2 oz) 10/08/2023 12:18 PM EST Height - - Body Mass Index 31.66 12/03/2022 7:53 AM EST documented in this encounter Progress Notes * Inocencia Kelly, - 10/08/2023 12:27 PM EST Subjective: Ulises Matos is a 73 year old male. Chief Complaint Patient presents with Acute Pt c/o pain in lower ride side of back, into leg; pain in shoulders; doctors excuse for 10/13, 10/14, 10/15, 10/16, already off this week. HPI: Ulises Matos presents today for evaluation of right shoulder pain. 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 He is planning on retiring later this month. He is already off work this week and is resting the shoulder. But he is scheduled to go back to work for the / as he feels he needs to rest his shoulder more. He also has chronic left shoulder problems. 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 360 mL 5 Fenofibrate 54 MG Oral Tablet (Lofibra) Take 2 Tablets by mouth in the morning. 180 Tablet 3 Simvastatin 40 MG Oral Tablet (Zocor) Take 1 Tablet by mouth at bedtime. 90 Tablet 3 Lisinopril 40 MG Oral Tablet Take 1 Tablet by mouth in the morning. 90 Tablet 3 Empagliflozin 25 MG Oral Tablet (Jardiance) Take 1 Tablet by mouth in the morning. 90 Tablet 3 glipiZIDE ER 5 MG Oral Tablet Extended Release 24 Hour (glipiZIDE XL) Take 1 Tablet by mouth in themorning. 30 minutes before a meal.. 90 Tablet 3 hydroCHLOROthiazide 12.5 MG Oral Capsule (Hydrodiuril) Take 1 Capsule by mouth in the morning. 90 Capsule 1 metFORMIN HCl 500 MG Oral Tablet (Glucophage) Take 2 Tablets by mouth in the morning and 2 Tablets before bedtime. 360 Tablet 3 No current facility-administered medications for this visit. Review of patient's allergies indicates: Allergen Reactions Amoxicillin-Pot Clavulanate Rash Diclofenac [Diclofenac Sodium] hives Objective: BP 168/90 | Pulse 106 | Temp 36.6 C (97.9 F) | Wt 94.4 kg (208 lb 3.2 oz) | SpO2 95% | BMI 31.66 kg/m | BSA 2.13 m General: alert, healthy, no distress, well nourished, and well developed Extremities: he is able to abduct the shoulders to about 90 degrees bilaterally. ROM is better withforward flexion but pt is noted to grimace throughout the movement. Internal and external rotation is limited bilaterally. There is muscle spasm over the medial trapezius and focal tenderness over the bicipital groove. ASSESSMENT/PLAN: Acute pain of right shoulder (Primary) - rest, ice (to areas of swelling), heat to area of muscle spasm. Note given for work. - RETURN TO WORK OR SCHOOL HTN, goal below 130/80 - high here today. He admits to being under a lot of stress. He is compliantwith his medication. Continue same for now. If still high at his visit in November will adjust medsat that time. Return as scheduled. Inocencia Kelly DO documented in this encounter Plan of Treatment Upcoming Encounters Date Type Department Care Team (Late st Contact Info) Description 12/16/2023 9:10 AM EST Office Visit [address] [place] [address] Inocencia Kelly DO [address] [place] [address] [place] [id number] Scheduled Procedures Name Priority Associated Diagnoses Date/Ti me COLONOSCOPY FLEXIBLE PROXIMAL DIAGNOSTIC Recall History of colon polyps Health Maintenance Due Date Last Done Comments Alpha-1 Antitrypsin 1969 Hepatitis B (1 of 3 - Risk 3-dose series) 2011 DISCUSS TOBACCO CESSATION (REFER TO SMARTSET #3291) 12/10/2018 12/10/2017 (Discussed) Depression Screening 08/11/2021 08/11/2020 COVID-19 Vaccine (3 - 2022- season) 2023 07/17/2021, 06/18/2021 Influenza Vaccine (FLU [...] COPD 06/06/2024 06/06/2023 Lipid Panel 06/06/2028 06/06/2023, 08/0 02/2022, 05/15/2021, [...] as of this encounter Visit Diagnoses Diagnosis Acute pain of right shoulder- Primary HTN, goal below 130/80 Unspecified essential hypertension documented in this encounter Advance Directives Documents on File Type Date Recorded Patient Medical Instrument Technician Expl anation Advance Directives and Living Will 01/02/2019 ADVANCE DIRECTIVE FI VE WISHES Power of Documentation Spec 01/02/2019 POWER OF A TTORNEY FIVE WISHES Care Teams Butt Maker Relationship Specialty Start Date End Date Inocencia Kelly DO [address] [place] [address] [place] [id number] PCP - General Internal Medicine 12/10/17 documented as of this encounter"
--- OUTSIDE RECORDS SUMMARY | 2023-12-11 09:49 | External Medical Summary | Summary of Care ---
Author Name Unknown Organization [facility] Address [address] [facility] [address] Phone [phone] Care Team Providers Care It Field Technician Name Role Phone Inocencia Kelly DO Primary Care Provider [phone] Reason for Visit * Reason Onset Date Comments Medication Refill 08/08/2023 Encounter Details Date Type Department Care Team Description 08/08/2023 Refill Family Medicine [address] [phone] Inocencia Kelly DO [address] [place] [address] [place] [id number] Type 2 diabetes mellitus with hemoglobin A1c goal of less than 7.0% ([facility]) Allergies Active Allergy Reactions Severity Noted Date Comments Amoxicillin-Pot Clavulanate Rash 10/03/20 11 Diclofenac Sodium 11/01/2009 hives documented as of this encounter (statuses as of 08/08/2023) Medications Medication Sig Dispensed Refills Start Date [...] 07/11/2021 Active Fenofibrate 54 MG Oral Tablet (Lofibra)Indicat ions:Dyslipidemi a, goal LDL below 100 Take 2 Tablets by mouth in the morning. 180 Tablet 3 11/15/2022 Active Simvastatin 40 MG Oral Tablet (Zocor)Indicatio ns:Dyslipidemia, goal LDL below 100 Take 1 Tablet by mouth at bedtime. 90 Tablet 3 11/18/2022 Active Lisinopril 40 MG Oral TabletIndication s:HTN, [...] before bedtime. 360 Tablet 3 08/08/2023 Active metFORMIN HCl 500 MG Oral Tablet (Glucophage)Margaux cations:Type 2 diabetes mellitus with hemoglobin A1c goal of less than 7.0% (HCC) TAKE TWO TABLETS BY MOUTH TWICE DAILY 360 Tablet 3 07/18/2022 08/08/2023 Discontinued (Refill) documented as of this encounter (statuses as of 08/08/2023) Active Problems Problem Noted Date Chronic obstructive pulmonary disease Type 2 diabetes mellitus wit h diabetic nephropathy, without long-term current use of insulin 05/31/2022 Overweight (BMI 25.0-29.9) 05/15/2021 BPH with obstruction/lower urinary tract symptoms 02/09/2021 Advance directive on file 01/12/2019 Acquired pes cavus 05/27/2016 [place] (nonalcoholic steatohepatitis) 09/27 Type 2 diabetes mellitus with hemoglobin A1c goal of less than 7.0% 12/08/2014 Overview: ICD-10 update of inactive term HTN, goal below 130/80 05/31/2013 Hyperlipidemia with target LDL less than 70 10/03/2009 Overview: Per Lipid Taxonomy. documented as of this encounter (statuses as of 08/08/2023) Resolved Problems Problem Noted Date Resolved Date Obstructive lung disease 08/11/2020 020 Obesity, Class I, BMI 30.0-34.9 (see actual BMI) 07/07/2018 05/15/2021 Asthma in remission 12/10/2017 07/19/2019 Primary osteoarthritis of both feet 05/27/2016 11/27/2016 Generalized osteoarthritis 02/12/201601/12 DM type 2 causing CKD stage 3 02/12/2016 Kidney disease, chronic, stage III (GFR 30-59 ml /min) 10/19/2015 01/12/2019 HTN, goal below 140/90 12/15/2014 0 Fitch's cyst of knee 12/02/2013 12/10/2017 Asthma, mild persistent 02/25/2013 12/10/19 18 Impaired fasting glucose 01/23/2013 013 HTN, goal below 140/80 06/15/2012 3 Overview: Per HTN Protocol #27. Dry mouth 02/11/2012 12/23/2012 Kidney disease, chronic, stage III (GFR 30-59 ml /min) 01/23/2012 06/02/2015 Urticaria 01/10/2011 12/10/2017 Severe obesity with body mas s index (BMI) of 35.0 to 39.9 with serious comorbidity 01/22/2010 07/07/2018 Overview: Per Obesity Taxonomy ICD-10 update of inactive diagnosis HTN, goal below 130/80 10/04/2009 2 HTN, goal below 140/90 09/01/2009 9 Overview: Modified per HTN Taxonomy. Type 2 diabetes mellitus wit h hemoglobin A1c goal of less than 7.0% 08/10/2009 06/17/2014 Overview: Modified per Diabetes protocol #14. ICD-10 update of inactive term Slow transit constipation 11/20/20072017 Anxiety state 05/05/2007 12/10/2017 GENERAL OSTEOARTHROSIS 12/03/2006 8 Other form of scoliosis, unspecified spinal payton on 03/26/2006 02/17/2008 Overview: ICD-10 update of inactive term Degeneration of lumbosacral intervertebral disc 03/26/2006 01/12/2019 ABN LIVER FUNCTION STUDY 03/04/2006 010 ADVANCE DIRECTIVE INFORMATION 12/09/2005 Overview: No, Advance Directive brochure given to patient at prior appointment. GENERAL OSTEOARTHROSIS 03/15/2005 9 Persistent insomnia 08/30/2004 10/10/2010 Strain of rotator cuff capsule 05/25/2004 0 01/19/2008 LOC PRIM OSTEOART-SHLDER 12/14/2003 018 Raynaud's syndrome 12/14/2003 12/10/2017 ADHESIVE CAPSULIT SHLDER 017 BENIGN HYPERTENSION 09/01/2009 Overview: Modified per HTN Taxonomy. OSTEOARTHROS NOS-HAND 02/25/2008 OSTEOARTHROS NOS-L-LEG 8 Mixed dyslipidemia 10/03/2009 Overview: Per Lipid Taxonomy. OBESITY, UNSPECIFIED 01/22/2010 Overview: Per Obesity Taxonomy DM type 2, not at goal 9 Overview: Modified per Diabetes protocol #14. Benign neoplasm of colon 018 Metabolic syndrome 12/10/2017 Other chronic nonalcoholic liver disease 12/10/2017 Overview: FATTY INFILTRATION LIVER documented as of this encounter (statuses as of 08/08/2023) Immunizations Name Administration Dates Next Due COVID-19 [...] alcohol) Last drink 06/2017. Mostly drinks holidays Food Insecurity Answer Date Recorded Within the past 12 months, y ou worried that your food would run out before you got money to buy more. Never true 07/19/2019 Within the past 12 months, t he food you bought just didn't last and you didn't have money to get more. Never true 07/19/2019 Sex Assigned at Date Recorded Not on file Job Start Date Occupation Industry Not on file Not on file Not on file documented as of this encounter Miscellaneous Notes * Telephone Encounter - Thomas Nj MD - 08/08/2023 4:30 PM EDT Signed Prescriptions: Disp Refills metFORMIN HCl 500 MG Oral Tablet (Glucopha*360 Ta*3 Sig: Take 2 Tablets by mouth in the morning and 2 Tablets before bedtime.Authorizing Provider: THOMAS [place] * Telephone Encounter - Thomas Nj MD - 08/08/2023 4:30 PM EDT Signed Prescriptions: Disp Refills metFORMIN HCl 500 MG Oral Tablet (Glucopha*360 Ta*3 Sig: Take 2 Tablets by mouth in the morning and 2 Tablets before bedtime. Authorizing Provider: THOMAS [place] * Telephone Encounter - Katya Brumfield CMA - 08/08/2023 12:35 PM EDTPending Prescriptions: Disp Refills metFORMIN HCl 500 MG Oral Tablet (Glucopha*360 Ta*3 Sig: Take 2 Tablets by mouth in the morning and 2 Tablets before bedtime. * Telephone Encounter - Joann Waters - 08/08/2023 10:49 AM EDT Did you pend patient's preferred pharmacy and medication before forwarding?yes Pharmacy: [facility] [place] Pending Prescriptions: Disp Refills metFORMIN HCl 500 MG Oral Tablet (Glucoph*360 Ta*3 Sig: Take 2 Tablets by mouth in the morning and 2 Tablets before bedtime. Last Visit: 06/06/2023 (in office), Visit date not found (telemedicine) Next Visit: 12/16/2023 If no future appointments scheduled, and last appointment is greater than a year ago, please schedule patient for a follow-up appointment Last date the medication was ordered: 07/18/2022 Is this request for a controlled substance?No [...] Plan of Treatment Upcoming Encounters Date Type Specialty Care Team Description 12/16/2023 Office Visit Family Medicine Inocencia Kelly[address] [place] [address] Scheduled Procedures Name Priority Associated Diagnoses Date/Ti me COLONOSCOPY FLEXIBLE PROXIMAL DIAGNOSTIC Recall History of colon polyps Health Maintenance Due Date Last Done Comments Alpha-1 Antitrypsin 1968 DISCUSS TOBACCO CESSATION (REFER TO SMARTSET #3291) 12/10/2018 12/10/2017 (Discussed) Depression Screening 08/11/2021 08/11/2020 COVID-19 Vaccine ( season) 2023 07/17/2021, 06/18/2021 Influenza Vaccine (FLU shot) (#1) 2023 10/10/2010, 07/29/2008, 09/18/2007, Additional history exists COLONOSCOPY-EVERY 3 YRS AGES 18-100 09/05/2023 09/05/2020, 09/05/2020 GFR 12/03/2023 12/03/2022, 08/0 02/2022, 10/01/2021, Additional history exists HbA1c 12/07/2023 06/06/2023, 02/0 04/2023, 05/31/2022, Additional history exists DIABETES-EYE EXAM 01/31/2024 01/30/2023, , 02/05/2022, Additional history exists [...] on patient's age to complete this topic Hepatitis B Aged Out No longer eligi ble based on patient's age to complete this topic MENINGOCOCCAL (MENACTRA/MENVEO) Aged Out No longer eligible based on patient's age to complete this topic documented as of this encounter Medical Devices Not on filedocumented as of this encounter Visit Diagnoses Diagnosis Type 2 diabetes mellitus with hemoglobin A1c goal of less than 7.0% (HCC) documented in this encounter Advance Directives Documents on File Type Date Recorded Patient Navigation Officer Expl anation Advance Directives and Living Will 01/02/2019 ADVANCE DIRECTIVE FI VE WISHES Power of Corporate Development Intern 01/02/2019 POWER OF A TTORNEY FIVE WISHES Care Teams It Field Technician Relationship Specialty Start Date End Date Inocencia Kelly, [address] [place] [address] PCP - General Internal Medicine 12/10/17 documented as of this encounter
--- OUTSIDE RECORDS SUMMARY | 2023-12-11 09:49 | External Medical Summary | Summary of Care ---
Author Name Unknown Organization [facility] Address [address] [place] [facility] [place] [address] Phone [phone] Care Team Providers Care Abrasive Band Winder Name Role Phone Inocencia Kelly DO Primary Care Provider [phone] Reason for Visit * Reason Onset Date Comments Letter Requests 09/30/2023 Encounter Details Date Type Department Care Team ([facility] st Contact Info) Description 09/30/2023 Telephone Family Medicine [address] [address] Inocencia Kelly DO [address] [place] [address] [place] [address] Letter Requests Allergies Active Allergy Reactions Criticality Noted Date Comments Amoxicillin-Pot Clavulanate Rash 10/03/20 11 Diclofenac Sodium 11/01/2009 hives documented as of this encounter (statuses as of 10/06/2023) Medications Medication Sig Dispensed Refills Start Date [...] as of this encounter (statuses as of 10/06/2023) Active Problems Problem Noted Date Diagnosed Date [...] as of this encounter (statuses as of 10/06/2023) Resolved Problems Problem Noted Date Diagnosed Date [...] as of this encounter (statuses as of 10/06/2023) Immunizations Name Administration Dates Next Due COVID-19 [...] encounter Miscellaneous Notes * Telephone Encounter - Mandy Dobbins RN - 10/06/2023 1:41 PM EST No answer, no machine. My G sent to patient * Telephone Encounter - Inocencia Kelly DO - 09/30/2023 3:41 PM EST I cannot write a letter for an illness that I did not see him for, and wasn't informed of at the time of illness. * Telephone Encounter - Mandy Dobbins RN - 09/30/2023 3:16 PM EST Can you do this letter? We did Not see pt for this * Telephone Encounter - Estelle Yost OSA - 09/30/2023 11:39 AM EST School or Work Note?: Work Has patient been seen for the current issue? If yes patient has been seen for the current issue, list issue/symptoms causing missed work/school (Call Details not required): N If no patient has not been seen for the current issue, complete Call Details. Dates Missed: 09/13 - 09/16 Date Returning: patient not returning - retiring and to get sick time paid out he needs an excuse Note will be faxed or picked up?: picking tech Fax number or phone number to call when note is completed: [phone] documented in this encounter Plan of Treatment Upcoming Encounters Date Type Department Care Team (Late st Contact Info) Description 12/16/2023 9:10 AM EST Office Visit Family Medicine [address] [address] [address] [place] [address] Scheduled Procedures Name Priority Associated Diagnoses Date/Ti [...] Documents on File Type Date Recorded Patient Radial Drill Operator For Plastic Expl anation Advance Directives and Living Will 01/02/2019 ADVANCE DIRECTIVE FI VE WISHES Power of Ibm Websphere Portal Developer 01/02/2019 POWER OF A TTORNEY FIVE WISHES Care Teams Abrasive Band Winder Relationship Specialty Start Date End Date Inocencia Kelly DO [address] [place] [address] [place] [id number] PCP - General Internal Medicine 12/10/17 documented as of this encounter
[2023-12-11] MEDS ORDERED: GLUCOSE 10 TAB/TUBE PO PRN (10:29)
[2023-12-11] MEDS ORDERED: PHARMACY GLYCEMIC MGMT CONSULT PRN (10:29)
[2023-12-11] MEDS ORDERED: DEXTROSE 50% 50 ML SYRINGE IV PRN (10:29)
[2023-12-11] MEDS ORDERED: GLUCAGON FOR INJ 1 MG VIAL SQ PRN (10:29)
[2023-12-11] MEDS ORDERED: CARBOHYDRATES FOR HYPOGLYCEMIA PO PRN (10:29)
[2023-12-11] MEDS ORDERED: GLUCOSE 40% GEL 15 GM TUBE PO PRN (10:29)
[2023-12-11 10:39] LABS: Magnesium 1.9 mg/dl (1.7-2.4); Phosphorus 3.3 mg/dl (2.5-4.9)
[2023-12-11] MEDS ORDERED: BENZONATATE 100 MG CAPSULE PO PRN (10:48)
[2023-12-11] MEDS ORDERED: Patient's ALLERGY Info needs ENTERED SCH (11:00)
[2023-12-11] MEDS: ALBUT/IPRATROP 3MG/0.5MG NEB 3 ML VIAL NEB SCH (11:02)
[2023-12-11] MEDS: Patient's ALLERGY Info needs ENTERED SCH (11:13)
[2023-12-11] MEDS: SODIUM CHLORIDE 0.9% 1,000 ML IV SCH (11:23)
[2023-12-11] MEDS: DOXYCYCLINE HYCLATE 100 MG CAP PO SCH (11:23)
[2023-12-11] MEDS: ENOXAPARIN INJ 40 MG/0.4 ML SYR SQ SCH (11:25)
--- NOTE | 2023-12-11 13:28 | Pharmacy Report ---
Pharmacy Glycemic Short Note 2 - Date of Service December 11, 2023 - Glycemic Short BSG Results (Last 24 hours): 12/11/23 12/11/23 05:25 12:18 Glucose 156 H POC Glucose 188 H OUTPATIENT ANTIDIABETIC REGIMEN: * Jardiance 25 mg PO QAM * Glipizide 5 mg PO QAM * Metformin 1 gm PO BID ASSESSMENT: * 73 y/o M admitted for hypoxia, RSV+. Patient with history of COPD and Type 2 diabetes managed on above oral meds. * Patient is being treated with IV Solu medrol. Received 125 mg IV x1 dose this AM then 20 mg IV q12h ongoing. * BSG today AM was 156 mg/dl and pre-lunch was 188 mg/dl. A small basal dose (stress of 1) ordered at noon today. * Novolog parameters based on stress of 2. PLAN FOR INPATIENT GLYCEMIC CONTROL: * Hold outpatient oral diabetes medications * Basal insulin * Lantus 10 units SQ today x1 at noon, re-assess tomorrow. * Bolus insulin * NovoLog per scale ACHS or Q6hrs while NPO * Goal Range: Low 110 mg/dL - High 140 mg/dL * Correction Factor: 25 mg/dL/unit * Nutritional / Prandial insulin per carb ratio of 1 unit per 8 grams CHO consumed
[2023-12-11] MEDS: INSULIN ASPART PER UNIT CHARGE SC SCH (14:17)
[2023-12-11] MEDS: LANTUS PER UNIT CHARGE SQ SCH (14:18)
[2023-12-11] MEDS: guaiFENesin 600 MG TABCR PO SCH (21:53)
[2023-12-11] MEDS: SIMVASTATIN 40 MG TAB PO SCH (21:53)
[2023-12-11] MEDS: methylPREDNISolone 20 MG in SYRINGE 0 ML IV SCH (21:53)
[2023-12-12] MEDS: LORazepam 0.5 MG TAB PO STA (05:01)
--- NOTE | 2023-12-12 05:38 | Electrocardiogram Report ---
Test Reason : Blood Pressure : / mmHG Vent. Rate : 111 BPM Atrial Rate : 111 BPM P-R Int : 168 ms QRS Dur : 066 ms QT Int : 326 ms P-R-T Axes : 078 069 101 degrees QTc Int : 443 ms Sinus tachycardia Nonspecific ST and T wave abnormality Abnormal ECG No previous ECGs available Confirmed by Alfred De Luna ([id number]) on 12/12/2023 5:38:14 AM Referred By: Confirmed By:Alfred De Luna
[2023-12-12 06:14] LABS: Hematocrit (blood only) 47.1 % (42.0-52.0); Hemoglobin 16.1 g/dl (14.0-18.0); Mean Corpuscular Hgb Conc 34.2 g/dL (32.0-36.0); Mean Corpuscular Volume 84.7 fL (80.0-100.0); Mean Platelet Volume 8.8 fL (9.4-12.4); Platelet Count 247 K/uL (130-400); RDW Standard Deviation 43.5 fL (36.4-46.3); Red Blood Count 5.56 M/uL (4.70-6.10); White Blood Count 6.11 K/ul (4.8-10.8)
[2023-12-12 06:31] LABS: Albumin Globulin Ratio 1.6 (0.9-2); Albumin Level 4.2 gm/dl (3.4-5.0); BUN Creatinine Ratio 20.5 (10-20); Bilirubin,Total 0.4 mg/dl (0.2-1.0); Calcium 8.7 mg/dl (8.6-10.3); Chol HDL Ratio 3.1 (0-5); Creatinine Clr Calc Pharmacy 64.9 ml/min; Est GFR (African American) 71.8 ml/min; Est GFR (Non-African American) 61.9 ml/min; Globulin 2.7 gm/dl (2.5-4.0); Magnesium 1.9 mg/dl (1.7-2.4); Total Protein 6.9 gm/dl (6.0-8.3)
[2023-12-12] MEDS: FENOFIBRATE NANOCRYSTALLIZED 48 MG TABLET PO SCH (07:27)
[2023-12-12] MEDS: lisinopril 40 MG TAB PO SCH (07:27)
[2023-12-12] MEDS: hydroCHLOROthiazide 25 MG TAB PO SCH (07:28)
[2023-12-12 08:14] LABS: Estimated Average Glucose 177 mg/dl; Hemoglobin A1C 7.8 % (4.5-5.6)
[2023-12-12] MEDS: LANTUS PER UNIT CHARGE SQ SCH (08:46)
--- NOTE | 2023-12-12 10:23 | Pharmacy Report ---
Pharmacy Glycemic Short Note 2 - Date of Service December 12, 2023 - Glycemic Short BSG Results (Last 24 hours): 12/11/23 12/11/23 12/11/23 12:18 18:08 20:05 Glucose POC Glucose 188 H 140 H 118 H 12/12/23 12/12/23 05:40 08:16 Glucose 144 H POC Glucose 146 H OUTPATIENT ANTIDIABETIC REGIMEN: * Jardiance 25 mg PO QAM * Glipizide 5 mg PO QAM * Metformin 1 gm PO BID ASSESSMENT: 12/12 * Patient received total of 16 units of insulin yesterday, of which 10 units were basal * Steroids decreasing to solumedrol 20 mg iv bid, will scale back slightly on basal. No change to CF/CR 12/11 * 73 y/o M admitted for hypoxia, RSV+. Patient with history of COPD and Type 2 diabetes managed on above oral meds. * Patient is being treated with IV Solu medrol. Received 125 mg IV x1 dose this AM then 20 mg IV q12h ongoing. * BSG today AM was 156 mg/dl and pre-lunch was 188 mg/dl. A small basal dose (stress of 1) ordered at noon today. * Novolog parameters based on stress of 2. PLAN FOR INPATIENT GLYCEMIC CONTROL: * Hold outpatient oral diabetes medications * Basal insulin * Lantus 8 units daily * Bolus insulin * NovoLog per scale ACHS or Q6hrs while NPO * Goal Range: Low 110 mg/dL - High 140 mg/dL * Correction Factor: 25 mg/dL/unit * Nutritional / Prandial insulin per carb ratio of 1 unit per 8 grams CHO consumed
--- NOTE | 2023-12-12 11:07 | Hospitalist Progress Note ---
Date of Service December 12, 2023 Assessment & Plan (1) RSV (acute bronchiolitis due to respiratory syncytial virus): (2) Hypoxia: (3) DM2 (diabetes mellitus, type 2): (4) HTN (hypertension): (5) COPD (chronic obstructive pulmonary disease): (6) BPH (benign prostatic hyperplasia): Plan 73-year-old M who presented to ED with wheezing and increased white and yellow sputum production over the past few days. Associated with fever, chills, anorexia In the ED, patient was placed on 4 L nasal cannula and given an albuterol treatment with mild improvement along with IV steroids. . Acute respiratory failure with hypoxia secondary to RSV: Acute No leukocytosis, procalcitonin negative, BNP negative Sputum culture ordered Chest x-ray indicates Faint patchy bibasilar densities. This may represent atelectasis or a low-grade pneumonitis; will empirically cover with Doxy and await sputum culture results RSV + Continue nebs and steroid Flutter valve and incentive spirometry ordered Oxygen down to 2L. Wean as tolerated Will need amb pulse ox prior to dc Mucinex for cough expectorant and Tessalon Pearls PRN NIDDM 2: Chronic Most recent A1c 06/18 7.1; will obtain while inpatient Takes metformin and glipizide; hold while inpatient and placed on SSI ACHS Creatinine was 1.38 on admission; baseline 1-1.2 Cr is 1.17 today Hypertension Chronic Continue lisinopril and HCTZ Tobacco use: Chronic Smokes less than half a pack per day; Provided smoking cessation counseling Disposition: PCP: Inocencia Kelly PA-C CODE STATUS: Full code VTE prophylaxis: Lovenox SQ I spent a total of 50 minutes coordinating, documenting and providing care for this patient excluding time spent in performance of separately billed services Admission and Anticipated Discharge Date Admission Date: December 11, 2023 Subjective Patient seen and examined Reports feeling better today Still has cough and some SOB Denied chest pain, nausea, vomiting, abd pain, diarrhea, constipation, fever or chills Denied palpitation Physical Exam Constitutional: + well hydrated; no acute distress Eyes: PERRL, conjunctivae normal, anicteric sclerae ENMT: external ear and nose normal, oropharynx normal Respiratory: normal respiratory effort; no respiratory distress +scattered rhonchi Cardiovascular: Rate/Rhythm: regular rhythm and + tachycardic S1 S2 Gastrointestinal (Abdomen): normal bowel sounds, soft, nontender, no hepatosplenomegaly Musculoskeletal: no cyanosis or clubbing, extremities motor strength 5/5 Neurologic: PERRL, EOMI, accommodation nl, no face palsy, no dysarthria Psychiatric: A+Ox3, euthymic affect Results & Data Results & Data Vital Signs (Past 12 Hours) Vital Signs Temp Pulse Pulse Resp BP Pulse Ox Pulse Ox 12/12/23 10:08 102 H 18 93 12/12/23 09:41 95 12/12/23 07:59 36.7 C 108 H 16 169/85 H 92 12/12/23 07:17 12/12/23 07:11 100 H 20 94 12/12/23 06:58 104 H 12/12/23 05:19 93 12/12/23 04:09 106 H 26 H 96 12/12/23 03:20 101 H 18 158/72 H 93 12/12/23 03:03 36.7 C 110 H 18 197/97 H 90 12/12/23 01:41 103 H 12/11/23 23:12 36.7 C 98 H 18 150/74 H 93 O2 Del Method O2 Del Method O2 Flow Rate O2 Flow Rate 12/12/23 10:08 Nasal Cannula 2 12/12/23 09:41 Nasal Cannula 2 12/12/23 07:59 Nasal Cannula 2 12/12/23 07:17 Nasal Cannula 2 12/12/23 07:11 Nasal Cannula 2 12/12/23 06:58 12/12/23 05:19 Nasal Cannula 2 12/12/23 04:09 Nasal Cannula 3 12/12/23 03:20 Room Air 2 12/12/23 03:03 Nasal Cannula 2 12/12/23 01:41 12/11/23 23:12 Nasal Cannula 2 Laboratory Results Abnormal lab results 12/11/23 12/11/23 12/12/23 Range/Units 18:08 20:05 05:40 MPV 8.8 L (9.4-12.4) fL BUN 24 H (6-23) mg/dl BUN/Creatinine Ratio 20.5 H (10-20) Glucose 144 H (70-99(Fasting)) mg/dl POC Glucose 140 H 118 H (70-99) mg/dl Hemoglobin A1c 7.8 H (4.5-5.6) % 12/12/23 12/12/23 Range/Units 08:16 12:10 MPV (9.4-12.4) fL BUN (6-23) mg/dl BUN/Creatinine Ratio (10-20) Glucose (70-99(Fasting)) mg/dl POC Glucose 146 H 160 H (70-99) mg/dl Hemoglobin A1c (4.5-5.6) %
[2023-12-12] MEDS ORDERED: ALBUT/IPRATROP 3MG/0.5MG NEB 3 ML VIAL NEB PRN (16:01)
[2023-12-12] MEDS: guaiFENesin 600 MG TABCR PO SCH (21:56)
[2023-12-13] MEDS: LABETALOL HCL IV 5 MG/ML 20ML IV STA (00:10)
[2023-12-13 10:20] LABS: BUN Creatinine Ratio 22.6 (10-20); C Reactive Protein 1.28 mg/dl (0-0.5); Calcium 9.1 mg/dl (8.6-10.3); Creatinine Clr Calc Pharmacy 65.5 ml/min; Est GFR (African American) 73.3 ml/min; Est GFR (Non-African American) 63.2 ml/min; Magnesium 1.8 mg/dl (1.7-2.4); Phosphorus 3.2 mg/dl (2.5-4.9); Potassium 4.2 mmol/L (3.5-5.1)
--- NOTE | 2023-12-13 10:48 | Discharge Summary ---
Date of Service December 13, 2023 Admission HPI Per Admitting Provider Mr. Matos is a 73-year-old male who presented to the ED with wheezing and increased white and yellow sputum production over the past few days. He has had pneumonia and bronchitis a few years ago. Reports fever and chills, but no recorded temperature. Reports being otherwise well prior to 3 days ago. Decreased appetite and oral intake over the past 3 days. No known sick contacts and no recent air travel. In the ED, patient was placed on 4 L nasal cannula and given an albuterol treatment with mild improvement along with IV steroids. Past medical history includes NIDDM, HTN, BPH, and [place]. Has albuterol as needed. No leukocytosis, mild NATALIO; creatinine 1.38; baseline 1-1.2. Serum glucose 156. BNP negative, troponin negative, procalcitonin negative,+ RSV. Otherwise labs unremarkable. Chest x-ray indicates faint patchy bibasilar densities. This may represent atelectasis or a low-grade pneumonitis. Pt denies CARRERO, dizziness, chest pain, palpitations, abdominal pain or tenderness, nausea, vomiting, urine or bowel changes, recent falls or trauma. Patient reports smoking daily less than half pack per day; no alcohol or recreational drug use including medical marijuana. Suspect patient experiencing hypoxia secondary to RSV infection. Will support with continued low-dose steroids, nebulizers 4 times daily plus as needed, IV fluids, cover empirically with doxycycline for possible pneumonitis as evidenced on chest x-ray, flutter valve, incentive spirometry, cough expectorant for symptom management. Patient will be admitted for further evaluation and management. Please see A/P for further details. Admission Exam Per Admitting Provider Neuro: AAOx4, PERRLA, no aphagia, memory changes, CNII-XII grossly intact HEENT: head normocephalic, moist mucus membranes CV: S1/S2, (-) M/G/R, (-) edema, cap refill < 3 seconds Resp: Lungs 2LNC; expiratory wheezing. GI: Abdomen S/NT/ND, Ax4 bowel sounds, (-) CVA tenderness Musculoskeletal: 5/5 B/L UE strength, 5/5 B/L LE strength. No gait disturbance Skin: (-) rashes , (-) erythema. Psych: euthymic mood Principal Diagnosis RSV infection COPD exacerbation Acute respiratory failure with hypoxia Discharge Exam Constitutional + well hydrated; no acute distress Eyes PERRL, conjunctivae normal, anicteric sclerae ENMT external ear and nose normal, oropharynx normal Respiratory normal respiratory effort; no respiratory distress Improved air entry. No wheezing Cardiovascular Rate/Rhythm: regular rate and regular rhythm S1 S2 Gastrointestinal (Abdomen) normal bowel sounds, soft, nontender, no hepatosplenomegaly Musculoskeletal no cyanosis or clubbing, extremities motor strength 5/5 Neurologic PERRL, EOMI, accommodation nl, no face palsy, no dysarthria Psychiatric A+Ox3, euthymic affect Discharge Data Allergies Allergy/AdvReac Type Severity Reaction Status Date / Time diclofenac Allergy Unknown Verified 12/11/23 11:11 amoxicillin AdvReac Unknown Verified 12/11/23 11:11 clavulanic acid AdvReac Unknown Verified 12/11/23 11:11 Consultations 12/11/23 09:29 ED Decision to Admit Stat Hospital Course (1) RSV (acute bronchiolitis due to respiratory syncytial virus): (2) Hypoxia: (3) DM2 (diabetes mellitus, type 2): (4) HTN (hypertension): (5) COPD (chronic obstructive pulmonary disease): (6) BPH (benign prostatic hyperplasia): Plan 73-year-old M who presented to ED with wheezing and increased white and yellow sputum production over the past few days. Associated with fever, chills, anorexia In the ED, patient was placed on 4 L nasal cannula and given an albuterol treatment with mild improvement along with IV steroids. . Acute respiratory failure with hypoxia secondary to RSV: Acute No leukocytosis, procalcitonin negative, BNP negative Chest x-ray indicates Faint patchy bibasilar densities. This may represent atelectasis or a low-grade pneumonitis RSV + Was treated with Steroid, nebs and supportive care He was successfully weaned off oxygen Ambulatory pulse ox today did not show any oxygen needs Patient discharged on 2 more days of prednisone to complete treatment He reports he has nebulizer at home. Refill of duoneb sent Mucinex for cough expectorant and Tessalon Pearls PRN NIDDM 2: HbA1c 7.8 Takes metformin and glipizide Hypertension Continue lisinopril and HCTZ Tobacco use: Smokes less than half a pack per day; Provided smoking cessation counseling Total Time Total Time Spent Total Time Spent (In Minutes): 35 Total Time Includes: Examination of the Patient, Discharge Planning and Medication Reconciliation Discharge Plan Discharge Items Patient Disposition: Home - Self-Care Reason For Visit: SOB/+RSV Discharge Diagnosis: RSV infection COPD exacerbation Acute respiratory failure with hypoxia Activity: Resume your previous activity Non-emergency contact: Primary Care Provider Call non-emergency contact if: you have any medication questions and your symptoms worsen Follow-up/Referrals: Inocencia Kelly DO [Primary Care Provider] - Diet: Carb Consistent or DM2 and Heart Healthy Addtl Attending Provider Instructions: Mr Thompson. Pandya presented to the hospital with cough and shortness of breath. You were managed for the above listed diagnoses. You are feeling better. Please take prednisone for next 2 days to complete treatment. Please quit smoking as we discussed. Please ensure follow up with your Primary Doctor. It was a pleasure taking care of you. Pending Studies at Discharge: No Stand-Alone Forms: My [facility] [place], Smoking Cessation Medications and DC Order Prescriptions: New guaifenesin [Mucinex] 600 mg Tablet Extended Release 12hr 1,200 mg PO Q12 Qty: 10 0RF benzonatate 100 mg Capsule 100 mg PO TID PRN (Reason: cough) Qty: 20 0RF prednisone 20 mg tablet 20 mg PO DAILY 2 Days Qty: 2 0RF Rx Instructions: days 11-21 of therapy Continued metformin 500 mg tablet 1,000 mg PO BID glipizide 5 mg tablet extended release 24hr 5 mg PO QAM simvastatin 40 mg tablet 40 mg PO HS hydrochlorothiazide 12.5 mg capsule 12.5 mg PO QAM lisinopril 40 mg tablet 40 mg PO QAM fenofibrate 54 mg tablet 108 mg PO QAM Jardiance 25 mg tablet 25 mg PO QAM ipratropium-albuterol 0.5 mg-3 mg(2.5 mg base)/3 mL Solution For Nebulization 3 ml INHALATION Q6H PRN (Reason: Shortness Of Breath Or Wheezing) Qty: 90 0RF Discharge Orders: Discharge Order (Routine); Ordered 12/13/23 Ordered By: Talita Solis/Other Patient Handouts: Managing Type 2 Diabetes Admission Data Admit Date/Time: 12/11/23 09:40 Attending Provider: Talita Fletcher I. Admit Provider: Alex Rodriguez Primary Care Provider: Inocencia Kelly Other Providers: Alex Rodriguez Other Interventions: Discharge Summary Assessment (RN) Last Done: 12/13/23 10:55
== END 2023-12-13 12:08 | disposition home or self-care (01) | DRG 202 ==
LOC: ED 05:17 → EDINP 09:40 → SUATTDRO 09:40 → 2W 10:14